=== PATIENT | female | born 1960 | race Caucasian/White ===

== ENCOUNTER → 2019-08-20 | Day surgery (SDC) | payer BC ==
[~2019-08-20] MED LIST: Lactated Ringers 1,000 ML IV SCH; Midazolam 1 MG/ML 2 ML SDV ONE; Propofol 200 MG/20 ML SDV ONE; fentaNYL 100 MCG/2 ML SDV ONE
--- NOTE | 2019-08-20 14:46 | OR ---
DATE OF PROCEDURE: 08/20/2019 SURGEON: Jd Grace MD PREOPERATIVE DIAGNOSES: Family history of colon cancer, personal history of polyps. POSTOPERATIVE DIAGNOSES: Small right colon polyp, family history of colon cancer, personal history of polyps. PROCEDURE: Colonoscopy to the cecum with biopsy resection of a small right colon polyp. ANESTHESIA: IV anesthesia with monitored anesthesia care. INDICATION: This 59-year-old white female is referred for a colonoscopy because of family history of colon cancer and personal history of polyps. She says 2 maternal aunts and 2 maternal cousins have had colon cancer. Her last colonoscopic exam was done 5 years ago. She has a history she says of polyps. The last colonoscopy was done in [place], [place]. I counseled her for the procedure, including risks and alternatives, and she gave her informed consent to proceed. DESCRIPTION OF PROCEDURE: The patient was placed in the left lateral decubitus position. IV anesthesia was administered by the Anesthesia Service. Time-out was held. A rectal exam was performed, which was unremarkable. The flexible video Olympus colonoscope was introduced through her anus, up her rectum, out her colon all the way to the cecum. To accomplish this, we did have to apply some abdominal compression. Once the cecum was reached, the scope was slowly withdrawn, examining the mucosa throughout. In the right colon, we saw a small polyp, which was removed with the biopsy forceps. The scope was withdrawn further with no other lesions noted. The scope was retroflexed in the rectum with the distal rectum appearing unremarkable. The scope was straightened and removed. She tolerated the procedure well. Jd Grace MD /[id number]
== END ==
LOC: JP.SDS 08:51
PROVIDERS: ATTEND Surgery
DX: Z12.11 Encounter for screening for malignant neoplasm of colon (principal); D12.2 Benign neoplasm of ascending colon; I10 Essential (primary) hypertension; Z88.5 Allergy status to narcotic agent; Z86.010 Personal history of colon polyps
CPT/HCPCS: 45380; 88305; J2250; J2704; J3010; J7120

== ENCOUNTER 2024-08-01 06:23 | Day surgery (SDC) | payer BC ==
[2024-08-01] MEDS: Sodium Chloride 0.9% 1,000 ML IV SCH (06:58)
[2024-08-01] MEDS ORDERED: Propofol 200 MG/20 ML SDV ONE ×2 (07:15→07:56)
[2024-08-01] MEDS ORDERED: Midazolam 1 MG/ML 2 ML SDV ONE (07:15)
[2024-08-01] MEDS ORDERED: fentaNYL 50 MCG/ML SDV ONE (07:15)
== END 2024-08-01 09:10 | disposition home or self-care (01) ==
LOC: JP.SDS 06:23
PROVIDERS: ATTEND Surgery
DX: Z12.11 Encounter for screening for malignant neoplasm of colon (principal); I10 Essential (primary) hypertension; Z88.5 Allergy status to narcotic agent
CPT/HCPCS: 45378; J2250; J2704; J3010; J7030; 00811-QZ